=== PATIENT | male | born 1995 | race Asian ===

== ENCOUNTER 2021-09-29 16:58 | Emergency (ER) | payer SELFPAY ==
[~2021-09-29] VITALS: Ht 170.2 cm; Wt 81.6 kg
[2021-09-29 17:00] VITALS: BP 159/102
--- NOTE | 2021-09-29 17:00 | NUR ---
BIBS C/O ABDOMINAL DISCOMFORT AND RETENSION, HAS NOTICED BLOOD IN HIS URINE THE PAST COUPLE DAYS.
--- NOTE | 2021-09-29 17:17 | NUR ---
URINE COLLECTED AND SENT
[2021-09-29 17:37] LABS: BILIRUBIN,URINE NEGATIVE (NEGATIVE); COLOR,URINE YELLOW (YELLOW); LEUKOCYTE ESTERASE ,URINE TRACE (NEGATIVE); NITRITE, URINE NEGATIVE (NEGATIVE); PROTEIN,URINE NEGATIVE (NEGATIVE); UGLUCOSE NEGATIVE (NEGATIVE); UROBILINOGEN,URINE 0.2 EU/dL (0.2)
[2021-09-29 18:51] LABS: BACTERIA,URINE RARE /HPF (None Seen); RBC,URINE 51-80 /HPF (0-2); SQUAMOUS EPITHELIAL CELL,UR 0-2 /HPF (None Seen)
[2021-09-29] MEDS ORDERED: CEPH500T PO (19:01)
--- NOTE | 2021-09-29 19:08 | NUR ---
Patient discharged to home in stable condition. Written and verbal after care instructions given. Patient verbalizes understanding of instruction.
== END 2021-09-29 19:09 | disposition home or self-care (01) ==
LOC: ER 17:01
DX: N39.0 Urinary tract infection, site not specified (principal); I10 Essential (primary) hypertension
CPT/HCPCS: 81001; 87491; 87591